=== PATIENT | female | born 1965 | race Caucasian/White ===

== ENCOUNTER 2019-07-14 16:30 | Emergency (ER) | payer MEDICAID, OTHER ==
[~2019-07-14] VITALS: Ht 161.9 cm; Wt 111.6 kg
[2019-07-14 16:37] VITALS: BP 164/86
--- NOTE | 2019-07-14 16:46 | NUR ---
PT AMBULATED TO ER BED 9
--- NOTE | 2019-07-14 16:48 | NUR ---
ERMD BEDSIDE EVALUATING PT
--- NOTE | 2019-07-14 16:50 | NUR ---
Note undone in EDM - 07/14/19 at 1656 by TRUDI 26 Y/M [employer] [place]. EMS WAS CALLED BY A BYSTANDER. EMS REPORTS MARIJUANA PIPE AND ALCOHOL AT SCENE. PT DENIES ANY ALCOHOL OR DRUG USE. PT REPORTS ONLY SMOKING A CIGARETTE. PT A &O X 4. RR EVEN AND UNLABORED. LUNGS CLEAR, ABD SOFT, DENIES N/V/D OR FEVERS. PMH- BIPOLAR RX- TRAZADONE NKDA
--- NOTE | 2019-07-14 16:56 | NUR ---
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
--- NOTE | 2019-07-14 17:52 | NUR ---
Patient discharged with v/s stable. Written and verbal after care instructions given and explained. Patient alert, oriented and verbalized understanding of instructions. Ambulatory with steady gait. All questions addressed prior to discharge. ID band removed. Patient advised to follow up with PMD. Rx of LISINOPRIL 40MG/AMLODIPINE given. Patient educated on indication of medication including possible reaction and side effects. Opportunity to ask questions provided and answered.
[2019-07-14 17:54] VITALS: BP 168/88
== END 2019-07-14 17:52 | disposition home or self-care (01) ==
LOC: MED 16:30
DX: I10 Essential (primary) hypertension (principal)
CPT/HCPCS: 93005; 99283